=== PATIENT | male | born 1960 | race African-American/Black ===

== ENCOUNTER 2024-06-19 02:57 | Emergency (ER) | payer OTHER ==
[2024-06-19 03:07] VITALS: BP 142/83; PULSE 86; RESP 20; BMI 22.1
[2024-06-19 03:33] VITALS: TEMP 98.6
[2024-06-19] MEDS ORDERED: AZITHROMYCIN 500 MG TABLET ONE (04:22)
[2024-06-19] MEDS ORDERED: ALBUTEROL SO4 2.5/IPRATROPIUM 0.5 INH SOL 3 ML VIAL.NEB. NEB ONE (04:22)
[2024-06-19] MEDS ORDERED: predniSONE 20 MG TABLET (UD) ONE (04:22)
[2024-06-19] MEDS: ALBUTEROL SO4 2.5/IPRATROPIUM 0.5 INH SOL 3 ML VIAL.NEB. NEB ONE (04:33)
[2024-06-19] MEDS: predniSONE 20 MG TABLET (UD) PO ONE (04:33)
[2024-06-19] MEDS: AZITHROMYCIN 250 MG TABLET PO ONE (04:33)
[2024-06-19 04:44] LABS: ABSOLUTE IMMATURE GRANULOCYTES 0.04 x10^3/uL (0.0-0.031); BASOPHILS # 0.03 x10^3/uL (0.01-0.08); EOSINOPHIL % 1.4 % (0.8-7.0); EOSINOPHILS # 0.17 x10^3/uL (0.04-0.54); HEMOGLOBIN 14.3 g/dL (13.7-17.5); MCHC 32.5 g/dl (32.3-36.5); MEAN CELL VOLUME 89.6 fl (79.0-92.2); MEAN PLT VOLUME 10.5 fl (9.4-12.4); MONOCYTE # 1.48 x10^3/uL (0.30-0.82); MONOCYTE % 12.2 % (5.3-12.2); PLATELET COUNT 198 x10^3/uL (163-337); RDW 13.9 % (12.2-16.4)
[2024-06-19 04:47] LABS: VENOUS BASE EXCESS 1.1 mmol/L (-2-2); VENOUS O2 SATURATION 40.4 % (70-80); VENOUS PCO2 50.9 mmHg (38-52); VENOUS PH 7.353 (7.310-7.410)
[2024-06-19 05:22] LABS: ALBUMIN 3.8 g/dl (3.4-5.0); CALCIUM 9.6 mg/dL (8.5-10.1)
[2024-06-19 05:23] LABS: BLOOD UREA NITROGEN 12.8 mg/dL (7-18)
[2024-06-19 05:27] LABS: BILIRUBIN,TOTAL 0.5 mg/dL (0.2-1); TOT PROT 6.9 g/dl (6.4-8.2)
== END 2024-06-19 07:09 | disposition home or self-care (01) ==
LOC: JER 02:57
PROC: 3E0F7GC Introduction of Other Therapeutic Substance into Respiratory Tract, Via Natural or Artificial Opening (ICD-10-PCS; principal; 2024-06-19)
DX: J44.1 Chronic obstructive pulmonary disease with (acute) exacerbation (principal); R05.9 Cough, unspecified
CPT/HCPCS: 0241U-QW; 36415; 71045-TC-FY; 80053; 82803; 85025; 93005; 93010; 94640; 99285-25